=== PATIENT | female | born 1965 | race Caucasian/White ===

== ENCOUNTER → 2019-11-01 12:29 | Outpatient (CLI) | payer BC, SELFPAY ==
--- NOTE | 2019-11-01 | US_ITS ---
PROCEDURE: MM DIG MAMM BI DX W/CAD Digital Breast Tomosynthesis Included CLINICAL INDICATION: BREAST DISCHARGE,BREAST PAIN Left nipple discharge COMPARISON: US BREAST LT COMPLETE from 11/01/2019 TECHNIQUE: Standard CC and MLO images and 3D Tomosynthesis was obtained. R2 CAD reviewed. Left breast ultrasound complete with axilla FINDINGS: Average fibroglandular tissue. Asymmetric density is present in the upper outer aspect of the left breast most prominent on the MLO view. No discrete mass is evident. No malignant-appearing microcalcification. Tomogram images show no discrete mass. Left breast ultrasound: No cystic or solid lesions evident. IMPRESSION: Asymmetric density in the upper outer aspect of the left breast. This is nonspecific probably benign. Recommend six-month follow-up to confirm stability BI-RAD Category: 3 Probably Benign Finding Short Term Follow-up FOLLOW-UP: 6M 6Month Follow-up (A letter has been sent to the patient regarding results of the study.) Dictated by: Bayron Thacker MD 11/09/2019 12:56 Electronically signed by Bayron Thacker MD in [place] 11/09/2019 12:56
== END ==
PROVIDERS: PCP Family Medicine; Visit Provider Nurse Practitioner Family
DX: N64.4 Mastodynia (principal); N64.52 Nipple discharge
CPT/HCPCS: 76641; 77062; 77066; G0279

== ENCOUNTER 2020-06-29 15:50 | Emergency (ER) | payer BC, SELFPAY ==
[2020-06-29 17:10] VITALS: BP 151/93; PULSE 86; RESP 16; TEMP 37.2; O2SAT 98; BMI 41.8
--- NOTE | 2020-06-29 17:36 | HMH.EDUTC ---
[facility] [place] Disposition Clinical Impression: Muscle spasms of neck Headache Qualifiers: Headache type: tension-type Headache chronicity pattern: acute headache Intractability: not intractable Qualified Code(s): G44.209 - Tension-type headache, unspecified, not intractable Disposition: Home, Self-Care Condition on Discharge: Good Instructions: DI for Migraine, DI for Torticollis Additional Instructions: follow up with pcp this week if symptoms worsen return or be seen in ed rotate heat and ice- place ice for 20 mins then wait till skin comes back to room temp and apply heat for 20 mins and rotate. watch for fever Prescriptions: Promethazine HCl [Phenergan 12.5mg tablet] 12.5 mg PO Q6H PRN 1 Days #1 tab PRN Reason: Nausea Transmission Status: Received by [facility] #[id number] Referrals: George Oleary MD [Primary Care Provider] - Forms: Work/School Release Time of Disposition: 17:43 Medical Decision Making - Carlos Alberto Inquiry Pt receiving controlled substance: No Vital Signs: 06/29/20 17:10 Temperature 99 F Temperature Source Oral Pulse Rate [Left Brachial] 86 Respiratory Rate 16 Blood Pressure [Left Arm] 151/93 H Blood Pressure Mean [Left Arm] 112 Blood Pressure Source [Left Arm] Automatic Cuff Blood Pressure Position [Left Arm] Sitting 02 Sat by Pulse Oximetry 98 Oxygen Delivery Method Room Air Orders (Tests/Meds): ED MEDICATIONS Discontinued Medications Generic Name Dose Route Start Last Admin Trade Name Freq PRN Reason Stop Dose Admin Dexamethasone Sodium Phosphate 4 mg 06/29/20 17:35 Dexamethasone 4mg/Ml 1ml Vial IM 06/29/20 17:36 ONCE ONE Ketorolac Tromethamine 15 mg 06/29/20 17:35 Ketorolac 30mg/Ml Vial IM 06/29/20 17:36 ONCE ONE [facility] [place] HPI - General Chief complaint: Urgent [facility] Stated complaint: Migrane Time Seen by Provider: 06/29/20 17:36 Source of Information: Patient Limitations: No Limitations - History of Present Illness Provider Complaint: 55 yr old female presents for rt shoulder pain with a migraine. pt states this happens once a year when she is under alot of stress. pt states she tightens up in the shoulder causing her to have a muscle strain that radiates up neck with headache. denies fever - Related Data Home Medications Medication Instructions Recorded Confirmed omeprazole magnesium 10 mg oral 10 mg PO ONCE each 07/31/17 08/04/19 suspension,delayed release Previous Rx's Medication Instructions Recorded Cyclobenzaprine HCl [Flexeril 10mg 10 mg PO TID PRN #15 tab 01/21/19 tablet] Etodolac [Etodolac 200mg Cap] 200 mg PO Q6HP PRN #20 cap 01/21/19 ondansetron 4 mg disintegrating 4 mg PO Q8H PRN #10 tab 08/04/19 tablet Promethazine HCl [Phenergan 12.5mg 12.5 mg PO Q6H PRN 1 Days #1 tab 06/29/20 tablet] Allergies Allergy/AdvReac Type Severity Reaction Status Date / Time gabapentin [From Neurontin] AdvReac Severe dizzy, Verified 08/04/19 16:07 high blood pressure [facility] History - Hepatitis A Screen Attestation statement:: This patient has been screened for Hepatitis A risk factors. I have reviewed the patient's past medical history: Yes Medical History: Reports:: Gastroesophageal Reflux Disease(GERD), Migraine Laterality Cases: Bilateral: Tonsillectomy Other Surgeries: Yes: Cholecystectomy Comment: Cholecystecomy, Ureteral Reimplantation. - Social History Smoking Status: Never smoker Alcohol Intake: current Alcohol Intake Frequency:: holidays/special occasions only Substance Use Type: denies use Occupational Status: employed Family Hx:: Cancer, Diabetes, Coronary Artery Disease ROS Obtained: Yes Systems reviewed as appropriate & no additional complaints - Constitutional Constitutional: Reports system reviewed and no additional complaints, except as docu, Denies fatigue, Denies fever(s) - Eyes Eyes: Reports system reviewed and no additional complaints, except a
[2020-06-29 17:56] VITALS: BP 151/93; PULSE 86; RESP 16; TEMP 37.2; O2SAT 98
== END 2020-06-29 18:05 | disposition home or self-care (01) ==
PROVIDERS: Emergency Provider Nurse Practitioner Family; PCP Family Medicine
DX: G44.209 Tension-type headache, unspecified, not intractable (principal); M62.838 Other muscle spasm; K21.9 Gastro-esophageal reflux disease without esophagitis; Z90.49 Acquired absence of other specified parts of digestive tract
CPT/HCPCS: 96372; 99202; G0463

== ENCOUNTER 2020-10-27 21:03 | Emergency (ER) | payer BC, SELFPAY ==
[2020-10-27 21:15] VITALS: BP 146/71; PULSE 78; RESP 18; TEMP 36.5; O2SAT 78; BMI 41.8
--- NOTE | 2020-10-27 21:28 | CT_ITS ---
PROCEDURE INFORMATION: Exam: CT Head Without Contrast Exam date and time: 10/27/2020 9:28 PM Age: 55 years old Clinical indication: Pain; Aura effect not specified; Patient HX: Migraine headache that started this morning. TECHNIQUE: Imaging protocol: Computed tomography of the head without contrast. Radiation optimization: All CT scans at this facility use at least one of these dose optimization techniques: automated exposure control; mA and/or kV adjustment per patient size (includes targeted exams where dose is matched to clinical indication); or iterative reconstruction. COMPARISON: No relevant prior studies available. FINDINGS: Brain: Normal. No hemorrhage. Unremarkable white matter. No mass effect. Cerebral ventricles: No ventriculomegaly. Bones/joints: Unremarkable. No acute fracture. Paranasal sinuses: Visualized sinuses are unremarkable. No fluid levels. Mastoid air cells: Visualized mastoid air cells are well aerated. Soft tissues: Unremarkable. IMPRESSION: No acute intracranial abnormality.
[2020-10-27 21:45] LABS: Microscopic, Urine URINE MICROSCOPIC (MICROSCOPIC)
[2020-10-27 21:48] LABS: Appearance,Urine CLEAR (Clear); Bilirubin,Urine Negative (Negative); Blood, Urine Negative (Negative); Color,Urine YELLOW (Yellow); Glucose,Urine (UA) 3+ (Negative); Ketones,Urine TRACE (Negative); Leukocyte Esterase,Urine TRACE (Negative); Nitrate,Urine Negative (Negative); Protein,Urine Negative (Negative); Specific Gravity, Urine 1.025 (1.005-1.030); Urobilinogen,Urine 0.2 EU/dl (0.2)
--- NOTE | 2020-10-27 21:53 | HMH.EDHA ---
ED Disposition Clinical Impression: Elevated LFTs Migraine Qualifiers: Migraine type: unspecified Status migrainosus presence: without status migrainosus Intractability: not intractable Qualified Code(s): G43.909 - Migraine, unspecified, not intractable, without status migrainosus Disposition: Home, Self-Care Condition on Discharge: Good Instructions: DI for Migraine Additional Instructions: call pcp for follow up Referrals: George Oleary MD [Primary Care Provider] - - Critical Care Critical Care Time: No Attestation: On 10/27/20, the high probability of a clinically significant, sudden or life threatening deterioration of the following system(s) required my full and direct attention, intervention and personal management. The time I documented below is in addition to time spent performing reported procedures but includes the following listed in this critical care notation. Medical Decision Making - Medical Records Medical records reviewed: Yes: I reviewed the patient's medical records. - Carlos Alberto Inquiry Pt receiving controlled substance: No Vital Signs: 10/27/20 21:15 Temperature 97.7 F Temperature Source Oral Pulse Rate [Right] 78 Respiratory Rate 18 Blood Pressure [Right Arm] 146/71 H Blood Pressure Mean [Right Arm] 96 Blood Pressure Source [Right Arm] Automatic Cuff Blood Pressure Position [Right Arm] Supine 02 Sat by Pulse Oximetry 78 L Oxygen Delivery Method Room Air - Lab Data Lab results reviewed: Yes: I reviewed the patient's lab results. Lab Results 10/27/20 21:35: Urine Color Yellow, Urine Appearance Clear, Urine pH 6.0, Ur Specific [place] 1.025, Urine Protein Negative, Urine Glucose (UA) 3+, Urine Ketones Trace, Urine Blood Negative, Urine Nitrate Negative, Urine Bilirubin Negative, Urine Urobilinogen 0.2, Ur Leukocyte Esterase Trace, Urine RBC 3-5, Urine WBC 10-20, Ur Squamous Epith Cells 5-10, Urine Bacteria 3+ 10/27/20 21:35: WBC 8.2, RBC 5.08, Hgb 12.9, Hct 41.9, MCV 82.4, MCH 25.4 L, MCHC 30.8 L, RDW 14.7, Plt Count 209, MPV 10.9 H, Neut % (Auto) 75.7, Lymph % (Auto) 16.2, [place] % (Auto) 5.7, Eos % (Auto) 1.7, Baso % (Auto) 0.7, Neut # (Auto) 6.2, Lymph # (Auto) 1.3, [place] # (Auto) 0.5, Eos # (Auto) 0.1, Baso # (Auto) 0.1 10/27/20 21:35: Sodium 135 L, Potassium 4.3, Chloride 102, Carbon Dioxide 26, Anion Gap 11.3, BUN 12, Creatinine 0.60, Estimated Creat Clear 107, Estimated GFR 104, Est GFR ( Amer) 126, Glucose 296 H, Calcium 8.9, Total Bilirubin 0.6, AST 179 H, ALT 193 H, Alkaline Phosphatase 140 H, C-Reactive Protein 8.6 H, Total Protein 7.2, Albumin 4.1, Globulin 3.1, Albumin/Globulin Ratio 1.3, Procalcitonin 0.082 Result diagrams: 10/27/20 21:35 10/27/20 21:35 Orders (Tests/Meds): ED MEDICATIONS Generic Name Dose Route Start Last Admin Trade Name Freq PRN Reason Stop Dose Admin Sodium Chloride 1,000 mls @ 999 mls/hr 10/27/20 21:30 10/27/20 22:06 Sod Chlor 0.9% 1000ml Bag IV 10/27/20 22:30 999 mls/hr .Q1H1M JA Administration Sodium Chloride 8 ml 10/27/20 21:28 Sodium Chloride 0.9% 10ml Vial IV 11/26/20 21:27 NEEDED PRN dilute pepcid Discontinued Medications Generic Name Dose Route Start Last Admin Trade Name Freq PRN Reason Stop Dose Admin Dexamethasone Sodium Phosphate 8 mg 10/27/20 22:03 10/27/20 22:05 Dexamethasone 4mg/Ml 1ml Vial IV 10/27/20 22:04 8 mg ONCE ONE Administration Diphenhydramine HCl 50 mg 10/27/20 21:28 10/27/20 22:06 Diphenhydramine 50mg/Ml Vial IV 10/27/20 21:29 50 mg ONCE ONE Administration Famotidine 20 mg 10/27/20 21:28 10/27/20 22:06 Famotidine 20mg/2ml Vial IV 10/27/20 21:29 20 mg ONCE ONE Administration Prochlorperazine Edisylate 10 mg 10/27/20 22:03 10/27/20 22:04 Prochlorperazine 10mg/2ml Vial IV 10/27/20 22:04 10 mg ONCE ONE Administration Promethazine HCl 25 mg 10/27/20 21:28 10/27/20 22:22 Promethazine Hcl 25mg/Ml 1ml Vial IV 10/27/20 21:29 25
[2020-10-27 21:55] LABS: Alanine Aminotransferase 193 U/L (12-78); Albumin Level 4.1 g/dl (3.5-5.0); Albumin/Globulin Ratio 1.3 (1.1-1.8); Alkaline Phosphatase 140 U/L (38-126); Anion Gap 11.3 mEq/L (5-15); Aspartate Amino Transferase 179 U/L (14-36); Bilirubin,Total 0.6 mg/dl (0.2-1.3); Blood Urea Nitrogen 12 mg/dl (7-17); Calcium 8.9 mg/dl (8.4-10.2); Carbon Dioxide 26 mmol/L (22.0-30.0); Chloride 102 mmol/L (98-107); Creatinine Clearance Estimated 107 mL/min (50-200); Estimated Glomerular Filt Rate 104 ml/min (>60); GFR (African American) 126 ML/MIN (>60); Globulin 3.1 g/dL (1.3-3.2); Glucose 296 mg/dl (74-100); Potassium 4.3 mmoL/L (3.5-5.1); Sodium 135 mmol/L (136-145); Total Protein,Serum 7.2 g/dl (6.3-8.2)
[2020-10-27 21:56] LABS: Bacteria,Urine 3+ /lpf
[2020-10-27 22:00] LABS: C-Reactive Protein 8.6 mg/L (0-4)
[2020-10-27 22:06] LABS: Basophils # 0.1 K/mm3 (0-0.2); Basophils % 0.7 % (0.1-2.0); Eosinophils # 0.1 K/mm3 (0.0-0.4); Eosinophils % 1.7 % (0.1-12.0); Hematocrit 41.9 % (37.0-47.0); Hemoglobin 12.9 g/dL (12.2-16.2); Lymphocytes # 1.3 K/mm3 (0.7-4.5); Lymphocytes % 16.2 % (10-50); Mean Corpuscular HGB Conc 30.8 g/dL (31.8-35.4); Mean Corpuscular Hemoglobin 25.4 pg (27.0-31.2); Mean Corpuscular Volume 82.4 fl (81-99); Mean Platelet Volume 10.9 fl (7.4-10.4); Monocytes # 0.5 K/mm3 (0.1-1.0); Monocytes % 5.7 % (1.7-9.3); Neutrophils # 6.2 K/mm3 (1.8-7.8); Neutrophils % 75.7 % (37.0-80.0); Platelet Count 209 K/mm3 (142-424); Red Blood Count 5.08 M/mm3 (4.20-5.40); Red Cell Distribution Width 14.7 % (11.5-17.5); White Blood Count 8.2 K/mm3 (4.8-10.8)
[2020-10-27 22:14] LABS: Procalcitonin 0.082 ng/mL (0.0-2.0)
[2020-10-27 22:31] LABS: Erythrocyte Sedimentation Rate 16 mm/hr (0-30)
[2020-10-27 22:47] VITALS: BP 128/62; PULSE 74; RESP 14; TEMP 36.5; O2SAT 97
== END 2020-10-27 22:52 | disposition home or self-care (01) ==
PROVIDERS: Emergency Provider Emergency Medicine; PCP Family Medicine
DX: G43.909 Migraine, unspecified, not intractable, without status migrainosus (principal); R94.8 Abnormal results of function studies of other organs and systems; K21.9 Gastro-esophageal reflux disease without esophagitis
CPT/HCPCS: 70450; 80053; 81001; 84145; 85025; 85651; 86140; 87086; 96365; 96367; 96375; 99283

== ENCOUNTER 2021-09-01 09:00 | Emergency (ER) | payer BC, SELFPAY ==
[2021-09-01 09:19] VITALS: BP 150/90; PULSE 89; RESP 19; TEMP 37.1; O2SAT 98; BMI 39.0
--- NOTE | 2021-09-01 10:18 | HMH.EDUTC ---
[facility] [place] Disposition Clinical Impression: Muscle spasms of neck Disposition: Home, Self-Care Condition on Discharge: Good Instructions: DI for Torticollis, DI for Neck Pain Additional Instructions: Go home and rest. It would be best if you rested tomorrow too. No heavy lifting. No twisting. Take the oral medications as directed. The muscle relaxer (cyclobenzaprine--Flexeril) will make you drowsy, so don't drive or operate heavy machinery after taking it. Don't start the oral steroids (medrol dose pack) until tomorrow, since you had the shots in here today. Follow up with your regular doctor. GO TO THE ER FOR ANY WORSENING SYMPTOMS OR CONCERN, ESPECIALLY BOWEL OR BLADDER ISSUES, SADDLE AREA NUMBNESS, FEVER, ETC Prescriptions: Ondansetron [Zofran 4mg ODT] 4 mg PO Q8HP PRN #20 tab PRN Reason: Nausea Transmission Status: Received by [facility] #[id number] Cyclobenzaprine HCl [Cyclobenzaprine 10mg Tab] 10 mg PO BIDP PRN #30 tab PRN Reason: Muscle Spasm Transmission Status: Received by [facility] #[id number] methylPREDNISolone [Medrol] 4 mg PO DIRECTED 6 Days #21 packet Transmission Status: Received by [facility] #[id number] Referrals: Elvira Sifuentes MD [Primary Care Provider] - Forms: Work/School Release Time of Disposition: 10:20 Medical Decision Making - Medical Records Medical records reviewed: No: I reviewed the patient's medical records. - Carlos Alberto Inquiry Pt receiving controlled substance: No Vital Signs: 09/01/21 09:19 09/01/21 10:50 Temperature 98.8 F 98.8 F Temperature Source Oral Pulse Rate 89 Pulse Rate [Left] 89 Respiratory Rate 19 19 Blood Pressure 150/90 H Blood Pressure [Right Arm] 150/90 H Blood Pressure Mean [Right Arm] 110 02 Sat by Pulse Oximetry 98 Orders (Tests/Meds): ED MEDICATIONS Discontinued Medications Generic Name Dose Route Start Last Admin Trade Name Freq PRN Reason Stop Dose Admin Dexamethasone Sodium Phosphate 8 mg 09/01/21 10:18 09/01/21 10:27 Dexamethasone 4mg/Ml 1ml Vial IM 09/01/21 10:19 8 mg ONCE ONE Administration Ketorolac Tromethamine 60 mg 09/01/21 09:58 09/01/21 10:01 Ketorolac 60mg/2ml Vial IM 09/01/21 09:59 60 mg ONCE ONE Administration Ondansetron HCl 4 mg 09/01/21 09:58 09/01/21 10:01 Ondansetron 4mg Odt SL 09/01/21 09:59 4 mg ONCE ONE Administration [facility] [place] HPI - General Stated complaint: h/a Time Seen by Provider: 09/01/21 09:20 Mode of Arrival: Ambulatory Source of Information: Patient Limitations: No Limitations Description of Symptoms (Recalled from Triage Doc. by RN): pt states she has had a migraine and neck pain off and on x2 wks. HEENT Symptoms (Recalled from RN notes): Yes Resp Symptoms (Recalled from RN notes): No Skin Symptoms (Recalled from RN notes): No MS Symptoms (Recalled from RN notes): Yes Functional Status (Recalled from RN notes): wnl - History of Present Illness Provider Complaint: She has had neck stiffness and pain with twisting her neck for the past 2 weeks. She denies any known injury. - Related Data Home Medications Medication Instructions Recorded Confirmed omeprazole magnesium 10 mg oral 10 mg PO ONCE each 07/31/17 08/04/19 suspension,delayed release Previous Rx's Medication Instructions Recorded Cyclobenzaprine HCl [Flexeril 10mg 10 mg PO TID PRN #15 tab 01/21/19 tablet] Etodolac [Etodolac 200mg Cap] 200 mg PO Q6HP PRN #20 cap 01/21/19 ondansetron 4 mg disintegrating 4 mg PO Q8H PRN #10 tab 08/04/19 tablet Promethazine HCl [Phenergan 12.5mg 12.5 mg PO Q6H PRN 1 Days #1 tab 06/29/20 tablet] Cyclobenzaprine HCl 10 mg PO BIDP PRN #30 tab 09/01/21 [Cyclobenzaprine 10mg Tab] Ondansetron [Zofran 4mg ODT] 4 mg PO Q8HP PRN #20 tab 09/01/21 methylPREDNISolone [Medrol] 4 mg PO DIRECTED 6 Days #21 09/01/21 packet Allergies Allergy/AdvReac Type Severity Reaction Status Date / Time gabap
[2021-09-01 10:50] VITALS: BP 150/90; PULSE 89; RESP 19; TEMP 37.1
== END 2021-09-01 10:51 | disposition home or self-care (01) ==
PROVIDERS: Emergency Provider Nurse Practitioner Family; PCP Family Medicine
DX: R51.9 Headache, unspecified (principal); M62.838 Other muscle spasm; M54.2 Cervicalgia; K21.9 Gastro-esophageal reflux disease without esophagitis
CPT/HCPCS: 96372; 99212; G0463